=== PATIENT | male | born 1965 | race Caucasian/White ===

== ENCOUNTER 2022-07-07 04:59 | Emergency (ER) | payer BC ==
[2022-07-07] MEDS ORDERED: predniSONE 20 MG Tab PO ONE (05:30)
[2022-07-07] MEDS ORDERED: Famotidine 20 MG/2 ML SDV IVPUSH ONE (05:30)
[2022-07-07] MEDS ORDERED: diphenhydrAMINE 50 MG/ML SDV IVPUSH ONE (05:30)
[2022-07-07] MEDS ORDERED: Lactated Ringers 1,000 ML IV ONE (05:38)
[2022-07-07 06:00] LABS: BASOPHILS ABSOLUTE AUTO 0.03 K/mm3 (0.01-0.08); BASOPHILS PERCENT AUTO 0.4 % (0.1-1.2); EOSINOPHILS ABSOLUTE AUTO 0.26 K/mm3 (0.04-0.54); EOSINOPHILS PERCENT AUTO 3.7 (0.8-7.0); HEMATOCRIT 44.9 % (40.1-51.0); HEMOGLOBIN 15.4 gm/dl (13.7-17.5); IMMATURE GRAN ABSOLUTE AUTO 0.02 K/mm3 (0.00-0.10); IMMATURE GRAN PERCENT AUTO 0.3 % (<=1.0); LYMPHOCYTES ABSOLUTE AUTO 1.22 K/mm3 (1.32-3.57); LYMPHOCYTES PERCENT AUTO 17.5 % (21.8-53.1); MEAN CORPUSCULAR HEMOGLOBIN 30.4 pg (25.7-32.2); MEAN CORPUSCULAR HGB CONC 34.3 g/dl (32.2-35.5); MEAN CORPUSCULAR VOLUME 88.6 fl (79.0-92.2); MEAN PLATELET VOLUME 9.5 fl (9.4-12.3); MONOCYTES PERCENT AUTO 14.4 % (5.3-12.2); NEUTROPHILS ABSOLUTE AUTO 4.43 K/mm3 (1.78-5.38); NEUTROPHILS PERCENT AUTO 63.7 % (34.0-67.9); PLATELET COUNT,PLT 340 K/mm3 (163-337); RED BLOOD CELL COUNT 5.07 M/mm3 (4.63-6.08); WHITE BLOOD CELL COUNT,WBC 6.96 K/mm3 (4.23-9.07)
[2022-07-07] MEDS ORDERED: Morphine 2 MG/ML SYRINGE IVPUSH ONE (06:06)
[2022-07-07 06:24] LABS: A/G RATIO 0.9 (1-2); ALBUMIN 3.7 g/dl (3.4-5.0); BILIRUBIN TOTAL 0.5 mg/dL (0.2-1.0); CALCIUM 9.2 mg/dL (8.5-10.1); PROTEIN TOTAL,TP 7.9 g/dl (6.4-8.2)
[2022-07-07 06:49] LABS: ANION GAP 18.4 (5-15); EST CRCL DRUG DOSING (CG) 80.52 mL/min; ETHANOL BLOOD MEDICAL 0.03 gm% (0.00)
[2022-07-07 06:54] LABS: POTASSIUM,K 4.4 mEq/L (3.5-5.1)
[2022-07-07] MEDS ORDERED: LORazepam 2 MG/ML SDV IVPUSH ONE (09:09)
[2022-07-07 09:42] LABS: APPEARANCE,URINE CLEAR (Clear); BILIRUBIN,URINE NEGATIVE (Negative); COLOR,URINE YELLOW (Yellow); GLUCOSE,URINE 3+ (Negative); KETONES,URINE 2+ (Negative); LEUKOCYTE ESTERASE,URINE NEGATIVE (Negative); NITRITE,URINE NEGATIVE (Negative); OCCULT BLOOD,URINE NEGATIVE (Negative); PH,URINE 6.5 (5.0-8.0); PROTEIN,URINE 1+ (Negative); UROBILINOGEN,URINE 0.2 (0.2-1.0)
[2022-07-07 09:58] LABS: BACTERIA,URINE RARE /hpf (FEW); EPITHELIAL CELLS,URINE NOT SEEN /hpf (0-5); MUCUS,URINE RARE /hpf (FEW); RBC,URINE 0-5 /hpf (0-5); WBC,URINE NOT SEEN /hpf (0-5)
[2022-07-07 10:01] LABS: BARBITURATE SCREEN,URINE NEGATIVE (CUTOFF=200); BENZODIAZEPINES SCREEN,URINE PRESUMPTIVE POSITIVE (CUTOFF=150); BUPRENORPHINE SCREEN,URINE NEGATIVE (CUTOFF=10); METHADONE SCREEN, URINE NEGATIVE (CUT0FF=200); METHAMPHETAMINES SCREEN, URINE NEGATIVE (CUTOFF=500); OXYCODONE SCREEN,URINE PRESUMPTIVE POSITIVE (CUT0FF=100); PROPOXYPHENE SCREEN,URINE NEGATIVE (CUTOFF=300); THC SCREEN,URINE 20 NG/ML PRESUMPTIVE POSITIVE (CUTOFF=50)
[2022-07-07 10:02] LABS: AMPHETAMINES SCREEN, URINE NEGATIVE (CUTOFF=500)
== END 2022-07-07 11:04 | disposition home or self-care (01) ==
LOC: JD.ED 04:59
DX: G89.29 Other chronic pain (principal); M25.512 Pain in left shoulder; B02.8 Zoster with other complications; B02.9 Zoster without complications
CPT/HCPCS: 36415; 80053; 80306; 80307; 81001; 85025; 96374; 96375; 99283; J1200; J2060; J2270; J3490; J7120; J7512